=== PATIENT | female | born 1980 | race American Indian/Alaskan Native ===

== ENCOUNTER 2021-04-04 08:46 | Observation (INO) | payer OTHER ==
--- NOTE | 2021-03-31 10:23 | Anesthesia Consultation ---
Anesthesia Consult and Med Hx Date of service: 04/04/21 - Airway Anesthetic Teeth Evaluation: Good, Crowns ROM Head & Neck: Adequate Mental/Hyoid Distance: Adequate Mallampati Class: Class III Intubation Access Assessment: Good - Pre-Operative Health Status ASA Pre-Surgery Classification: ASA1 Proposed Anesthetic Plan: General Nerve Block: TAP - Pulmonary Hx Smoking: No Hx Sleep Apnea: No - Central Nervous System Hx Psychiatric Problems: No - Gastrointestinal Hx Gastroesophageal Reflux Disease: No - Hematic Hx Sickle Cell Disease: No - Other Systems Hx Alcohol Use: Yes (Occas) Hx Cancer: No Hx Obesity: No
[2021-03-31 10:58] LABS: Basophils # (Auto) 0.1 K/mm3 (0.0-0.1); Basophils % (Auto) 1.1 % (0.0-1.8); Eosinophils # (Auto) 0.1 K/mm3 (0.0-0.4); Eosinophils % (Auto) 1.7 % (0.0-4.3); Hematocrit 38.1 % (30.3-42.9); Hemoglobin 12.1 gm/dl (10.1-14.3); Lymphocytes # (Auto) 1.6 K/mm3 (1.2-5.4); Lymphocytes % (Auto) 29.6 % (13.4-35.0); Mean Corpuscular HGB Conc 32 % (30-34); Mean Corpuscular Volume 90 fl (79-97); Monocytes # (Auto) 0.4 K/mm3 (0.0-0.8); Monocytes % (Auto) 8.2 % (0.0-7.3); Platelet Count 296 K/mm3 (140-440); Red Blood Count 4.25 M/mm3 (3.65-5.03); Red Cell Distribution Width 13.7 % (13.2-15.2)
--- NOTE | 2021-04-03 13:38 | History and Physical Report ---
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 of genital herpes: yes Hx of STD: HSV Active Medications: None Current Allergies (reviewed today): No known allergies Past Medical History: Reviewed and updated today: Fibroids Abnormal Pap Smear (2013) Past Surgical History: Reviewed history from 02/06/2021 and no changes required: Tubal Ligation 2008 Essure Endometrial Ablation: (11/21/2010) Thermachoice mole removal LEEP(2013)LUCILA 1 Lipoma removed (R) shoulder 07/2017 Family History Summary: Reviewed history Last on 10/03/2020 and no changes required:04/03/2021 Other Family Member - Has No Family History of Uterine Cancer - Entered On: 12/22/2018 Other Family Member - Has No Family History of Small Bowel Cancer - Entered On: 12/22/2018 Other Family Member - Has No Family History of Stomach Cancer - Entered On: 12/22/2018 Other Family Member - Has No Family History of Pancreatic Cancer - Entered On: 12/22/2018 Other Family Member - Has No Family History of Kidney/Urinary Tract Cancer - Entered On: 12/22/2018 Other Family Member - Has No Family History of Spontaneous DVT-PE - Entered On: 12/22/2018 Other Family Member - Has No Family History of Colon Cancer - Entered On: 12/22/2018 Other Family Member - Has No Family History of Brain Cancer - Entered On: 12/22/2018 Other Family Member - Has No Family History of Breast Cancer - Entered On: 12/22/2018 Other Family Member - Has No Family History of Biliary Tract Cancer - Entered On: 12/22/2018 MGM - Has Family History of Ovarian Cancer - Entered On: 06/27/2015 General Comments - FH: Family History of Colon Cancer maternal great aunt and 2nd cousin No Family History of Breast Cancer No Family History of DVT/PE on OCP Social History: Reviewed history from 06/21/2014 and no changes required: Patient is Smoking History: Patient has never smoked. Risk Factors: Smoked Tobacco Use: Never smoker Smokeless Tobacco Use: Never Passive Smoke Exposure: no HIV High Risk Behavior: no Exercise: yes Times/wk: 3 Type of Exercise: walking Seatbelt Use: 100 % Alcohol Use: yes Type: occ Drinks per day: social Drug Use: no Previous Tobacco Use: Signed On - 02/06/2021 Smoked Tobacco Use: Never smoker Smokeless Tobacco Use: Never Passive Smoke Exposure: no HIV High Risk Behavior: no Exercise: no Seatbelt Use: 100 % Alcohol Use: yes Type: occ Drug Use: no Physical Exam Appearance: well developed, well nourished, no acute distress Other Exams Lungs: no rales, rhonchi, or wheezes Heart: S1, S2, no murmur, rub, or gallop Genitourinary Exam Uterus: deferred for EUA Impression & Recommendations: Problem # 1: Fibroids of uterus; Intramural (ICD-218.1) ([id number]) Diagnosis explained to patient . Discussed with patient various medical, surgical and radiological therapies common for treatment including, but not limited to, myomectomy, hysterectomy and uterine artery embolization. Discussed risks and benefits of laparotomy, laparoscopy, vaginal and robotic assisted approaches for hysterectomies. Patient desires definitive treatment in the form of robot assisted laparoscopic total hysterectomy. The risks and alternatives for this surgery were reviewed with the patient. She was informed of the risks of the surgery including, but not limited to, pain, infection, bleeding possibly heavy enough to require a blood transfusion with associated risks of infections (hepatitis and HIV) and transfusion reactions, possible damage to bowel, bladder or ureter(s) and surrounding organs. She was also informed of slight increased risk for vaginal cuff breakdown with the robotic approach. Patient understands that this surgery will make her sterile. Indications to abort a robotic/laparoscopic procedure and perform an open procedure were explained. Patient understands if her ovaries are removed she will become menopausal. Patient advised the small risks of spreading of malignancy if morcellation is required during the surgery patient understands and approves performing if necessary. Questions answered. Consent reviewed and signed The patient was instructed/informed the following: The normal length of hospital stay for this procedure. Nothing to eat or drink after midnight the evening prior to surgery.. Pre-op instruction sheets given. Wound care instructions given. Problem # 2: Non-cyclic pelvic pain (YYM29-A22.2) It was extensively explained to her that her pain may persist, recur or change in nature due to the difficulty with determining the exact etiology(ies) of chronic pelvic pain or development of adhesions. She declined other treatment options at this time Medications and Allergies Allergies Allergy/AdvReac Type Severity Reaction Status Date / Time No Known Allergies Allergy Unverified 03/28/21 18:48 Home Medications Medication Instructions Recorded Confirmed Last Taken Type No Known Home Medications [No 03/28/21 03/28/21 Unknown History Reported Home Medications] Active Meds: Active Medications Acetaminophen (Acetaminophen 500 Mg Tab) 1,000 mg PO PREOP BELLA Stop: 04/04/21 21:00 Celecoxib (Celecoxib 200 Mg Cap) 400 mg PO PREOP NR Stop: 04/04/21 21:00 Fentanyl (Fentanyl 100 Mcg/2 Ml Inj) 100 mcg IV PREOP BELLA Stop: 04/04/21 21:00 Gabapentin (Gabapentin 300 Mg Cap) 300 mg PO PREOP NR Stop: 04/04/21 21:00 Lactated Ringer's (Lactated Ringers) 1,000 mls @ 125 mls/hr IV DIRECT BELLA Stop: 04/04/21 21:00 Cefazolin Sodium (Ancef/Sterile Water 2 Gm/20 Ml) 2 gm in 20 mls @ 80 mls/hr IV PREOP NR; Protocol Magnesium Oxide (Magnesium Oxide 400 Mg Tab) 400 mg PO PREOP BELLA Stop: 04/04/21 21:00 Methocarbamol (Methocarbamol 750 Mg Tab) 1,500 mg PO PREOP BELLA Stop: 04/04/21 21:00 Midazolam HCl (Midazolam 2 Mg/2 Ml Inj) 2 mg IV PREOP NR Stop: 04/04/21 23:59 Exam Vital Signs Temp Pulse Resp BP Pulse Ox 98.4 F 72 20 121/78 100 03/31/21 09:50 03/31/21 09:50 03/31/21 09:50 03/31/21 09:50 03/31/21 09:50 Results - Labs 03/31/21 06:00 Assessment and Plan - Patient Problems (1) Pelvic pain Status: Chronic (2) Fibroids Status: Chronic
[~2021-04-04 08:46] MED LIST: ACETAMINOPHEN 500 MG TAB PO SCH; CELECOXIB 200 MG CAP PO NR; LACTATED RINGERS 1,000 ML IV SCH; MAGNESIUM OXIDE 400 MG TAB PO SCH; ceFAZolin/Water 2 GM/20 ML 2 GM/20 ML SYRINGE IV NR; fentaNYL 100 MCG/2 ML INJ IV SCH
[2021-04-04] MEDS: GABAPENTIN 300 MG CAP PO NR ×2 (09:40→10:32)
[2021-04-04] MEDS ORDERED: dexAMETHasone 4 MG/ML VIAL ONE (09:41)
[2021-04-04] MEDS ORDERED: BUPIVACAINE/PF (0.25%) 2.5 MG/ML 30 ML VIAL INFILTRATI ONE (09:41)
--- NOTE | 2021-04-04 09:42 | Anesthesia Day of Surgery ---
Anesthesia Day of Surgery - Day of Surgery Patient Examined: Yes Patient H&P Reviewed: Yes Patient is NPO: Yes
[2021-04-04] MEDS: MIDAZOLAM 2 MG/2 ML INJ IV NR ×2 (09:57→10:00)
[2021-04-04] MEDS ORDERED: propofoL 200 MG/20 ML VIAL IV ONE (10:30)
[2021-04-04] MEDS ORDERED: HYDROmorphone 1 MG/1 ML INJ ONE (10:30)
[2021-04-04] MEDS ORDERED: HYDROmorphone 1 MG/1 ML INJ IV PRN ×2 (10:30)
[2021-04-04] MEDS ORDERED: ONDANSETRON 4 MG/2 ML INJ IV PRN ×2 (10:30→18:40)
[2021-04-04] MEDS ORDERED: LIDOCAINE MPF (2%) 20 MG/1 ML VIAL 5 ML ONE (10:33)
[2021-04-04] MEDS ORDERED: ROCURONIUM 50 MG/5 ML INJ IV ONE (10:33)
[2021-04-04] MEDS ORDERED: NEOMY 40 MG/POLYMYXIN B 200,000 UNITS/ML (GU) AMPULE IR ONE ×2 (10:37→12:23)
[2021-04-04] MEDS ORDERED: dexAMETHasone 20 MG/5 ML VIAL ONE (11:35)
[2021-04-04] MEDS ORDERED: GLYCOPYRROLATE 0.4 MG/2 ML INJ ONE ×2 (11:59→13:31)
[2021-04-04] MEDS ORDERED: SODIUM CHLORIDE 0.9% IRRIG SOLN 2000 ML IR ONE (12:23)
[2021-04-04] MEDS ORDERED: NEOSTIGMINE 10MG/10 ML INJ MDV ONE (13:31)
[2021-04-04] MEDS ORDERED: KETOROLAC 30 MG/1 ML INJ ONE (13:31)
[2021-04-04] MEDS ORDERED: ONDANSETRON 4 MG/2 ML INJ ONE (13:31)
[2021-04-04] MEDS ORDERED: LACTATED RINGERS 1,000 ML ONE (13:42)
--- NOTE | 2021-04-04 14:17 | Operative Report ---
Operative Report Operative Report: Date: 04/04/2021 Preoperative diagnosis: 1. Pelvic pain 2. Uterine fibroid 3. Body mass index of 21.6 kg/m Postoperative diagnosis: 1. Pelvic pain 2. Uterine fibroid 3. Body mass index of 21.6 kg/m 4. Bilateral ovarian cyst Procedure: 1. Robotic-assisted laparoscopic total hysterectomy with bilateral salpingectomy 2. Bilateral ovarian cystectomy Surgeon: Carmina Chavez MD Psychiatric Orderly: Meka FERNANDO Anesthesiologist: Dr. Caal Anesthesia: General endotracheal anesthesia EBL: Approximately 100 mL Findings: EUA: Uterus palpated to approximately 15 to 16 weeks weeks. Uterus was sounded to 11 cm. Bilateral ovarian cyst, grossly normal fallopian tubes. Multiple uterine fibroids. Procedure: Patient was taken to the OR and placed in the supine position. General anesthesia was induced and an oral gastric tube was placed. Her neck and head were placed on foam support. Foam eye protection with goggles were secured in place. Then foam face protection was placed and secured. Foam shoulder pads were then positioned on her shoulders for Trendelenburg positioning. She was then placed in dorsolithotomy position. Exam under anesthesia as above. The abdomen and vagina were then prepped and draped in the usual sterile fashion. Timeout was performed. A Sparks catheter was inserted into the bladder with drainage of clear yellow urine. The operative speculum was introduced into the vagina and the anterior lip of the cervix was grasped with single-toothed tenaculum. The uterus was sounded to 11 cm. The cervix was progressively dilated to allow the large V care uterine manipulator. The bulb of the manipulator was inflated and the speculum and tenaculum were removed. The cup of the manipulator was placed around the cervix and the blue occluder of the manipulator was properly positioned in the vagina and secured. A laparotomy sponge that was saturated with a solution of polymyxin and saline was placed in the vagina to ensure pneumoperitoneum. Sterile gloves were placed and attention was turned to the abdomen. A 10 mm midline vertical supraumbilical incision was made approximately 10 cm superior to the elevated fundus of the uterus. A 10-12 mm trocar with the laparoscope and camera attached was introduced through this incision under direct visualization. The abdomen was insufflated. No obvious bowel, bladder, ureteral, or major vascular injury was noted. The patient was then placed in steep Trendelenburg position and the following trochars were placed under direct visualization: 8 mm robotic trochars were placed through incisions made in the bilateral midclavicular lower abdominal region approximately 10 cm lateral to the midline incision, and a 5 mm trocar was placed through an incision made in the right lower lateral pelvis. The 10 mm laparoscope was then replaced by a 5 mm laparoscope that was placed through the 5 millimeter lateral trocar. The 12 mm trocar was then removed and the Jem Briscoe fascial closure device was placed through the incision and a 0 Vicryl was placed through the fascia. Once the suture was secured the 12 mm trocar was reintroduced. Once the trochars were in the appropriate positions, the da Jaswinder robot system was engaged. The EndoShears and bipolar device was placed through the 8 mm trochars and positioned then attention was turned to the console. The uterus was elevated and bilateral salpingectomy was performed. Each tube was removed through the 5 mm trocar and sent to pathology in separate containers. Then the utero-ovarian ligaments were clamped. cauterized and incised bilaterally using 30 W of energy. Then the round ligaments were clamped, cauterized and incised bilaterally. The anterior leaf of the broad ligament was elevated and with careful blunt and sharp dissection the bladder flap was created and dissected away from the lower uterine segment and cervix. The posterior leaf of the broad ligament was dissected away from the uterine vessels. The cup of the uterine manipulator was palpated both anteriorly and posteriorly. The bladder was further dissected away from the lower uterine segment. The uterine vessels were then clamped and cauterized bilaterally. Blanching of the uterus was then noted. Attention was again turned to the anterior lower uterine segment and the bladder was confirmed to be away from the operative field. Then attention was turned again to the posterior where the cup of the manipulator was palpated and a colpotomy was performed down to the cup. The incision was extended in the lateral position to the uterine vessels that were again clamped and cauterized and incised. Con tinuing along the cup of the manipulator in a circumferential manner the colpotomy was completed. The uterus and cervix were then removed through the vaginal incision. The pelvis was irrigated with warm normal saline. A moist laparotomy sponge was placed in the vagina to maintain pneumoperitoneum. The vagina cuff was reapproximated using V LOC 180 suture. Then a J stitch was performed to secure the suture. Again the pelvis was copiously irrigated with polymixin in warm normal saline. The laparotomy sponge was removed from the vagina. No obvious evidence of bowel, bladder, ureteral, or major vascular injury was noted. Attention was turned to the left adnexa where an ovarian cystectomy was performed without any complication. Hemostasis was noted. The same procedure was performed on the right ovary. Hemostasis was noted. The pelvis was again irrigated with warm normal saline hemostasis was noted. Then the instruments were removed, the robot was disengaged. The 12 mm trocar was removed. The suture that was placed in the fascia at the beginning of the procedure inadvertently released when attempting to tie it. Therefore the fascia was ligated with the 0 Vicryl on a UR 6 needle. No bowel or omentum was palpated within this incision when closing it. The patient was taken out of Trendelenburg position, the abdomen was desufflated, the remaining trochars were removed. Incisions were reapproximated using 4-0 Monocryl in a subcuticular manner. Surgiseal was placed over the other incisions. The vagina was then inspected, the cuff was palpated to be intact and no bleeding was noted and clear yellow urine was draining into the Sparks bag from the bladder at the end of the procedure. The Sparks catheter was removed. Counts were correct 3. Patient was taken to recovery room in stable condition.
[2021-04-04] MEDS ORDERED: oxyCODONE /ACETAMINOPHEN 5-325MG TAB PO PRN (16:30)
--- NOTE | 2021-04-04 17:15 | Post Anesthesia Evaluation ---
- Post Anesthesia Evaluation Patient Participated: Yes Airway Patent: Yes Stable Respiratory Function: Yes Nausea/Vomiting: No Temp > 96.8F: Yes Pain Manageable: Yes Adequeate Hydration: Yes Anesthesia Complications: No Block Receding Appropriately: Yes Patient on Ventilator: No
[2021-04-04] MEDS ORDERED: ONDANSETRON 4 MG ODT TAB PO PRN (18:40)
[2021-04-04] MEDS ORDERED: MORPHINE 2 MG/1 ML INJ IV PRN (18:40)
[2021-04-04] MEDS ORDERED: METOCLOPRAMIDE 10 MG/2 ML INJ IV PRN (18:40)
[2021-04-04] MEDS ORDERED: SODIUM CHLORIDE 0.9% 1000 ML 1,000 ML IV SCH (18:40)
[2021-04-04] MEDS ORDERED: METOCLOPRAMIDE 10 MG TAB PO PRN (18:40)
[2021-04-04] MEDS: KETOROLAC 30 MG/1 ML INJ IV SCH (19:42)
[2021-04-04] MEDS: ceFAZolin/NS 1 GM/50 ML 1 GM/50 ML BAG IV SCH (19:44)
[2021-04-04] MEDS ORDERED: ACETAMINOPHEN 325 MG TAB PO PRN (22:30)
[2021-04-05] MEDS: KETOROLAC 30 MG/1 ML INJ IV SCH ×2 (00:52→06:45)
[2021-04-05] MEDS: ceFAZolin/NS 1 GM/50 ML 1 GM/50 ML BAG IV SCH (03:56)
[2021-04-05 06:26] LABS: Hematocrit 34.2 % (30.3-42.9); Hemoglobin 10.9 gm/dl (10.1-14.3)
--- NOTE | 2021-04-05 09:13 | Discharge Summary ---
Providers - Providers Date of Admission: 04/04/21 17:01 Date of discharge: 04/05/21 Attending physician: ARAM SHAY Primary care physician: CINTHYA ECHEVERRIA MD Hospitalization Condition: Good Procedures: Robot assisted laparoscopic total hysterectomy, bilateral salpingectomy, bilateral ovarian cystectomy Hospital course: Unremarkable. Patient underwent the above procedure she was observed in PACU with the intent to allow home however patient received Percocet which made her nauseous and desired observation overnight. Therefore she was admitted and observed, today patient is doing well no complaints desires discharge home. Disposition: HOME / SELF CARE / HOMELESS Final Discharge Diagnosis (Prints w/discharge instructions): Robot-assisted laparoscopic total hysterectomy,bilateral salpingectomy, bilateral ovarian cystectomy - Discharge Diagnoses (1) Pelvic pain Status: Chronic (2) Fibroids Status: Chronic Core Measure Documentation - Palliative Care Palliative Care/ Comfort Measures: Not Applicable - Core Measures Any of the following diagnoses?: none Exam - Physical Exam Narrative exam: Sitting in bed no complaints denies any bleeding or pain. - Constitutional Vitals: Temp Pulse Resp BP Pulse Ox 98.4 F 74 18 117/67 100 04/05/21 07:47 04/05/21 07:47 04/05/21 07:47 04/05/21 07:47 04/05/21 07:47 General appearance: Present: no acute distress - Respiratory Respiratory effort: normal Respiratory: bilateral: CTA - Cardiovascular Rhythm: regular - Extremities Extremities: no ischemia, No edema - Abdominal General gastrointestinal: Present: soft, non-tender, non-distended, normal bowel sounds Female genitourinary: Present: deferred - Integumentary Integumentary: Present: clear, warm, dry (Incisions clean, dry, intact. No signs symptoms of infection or dehiscence.) - Psychiatric Psychiatric: appropriate mood/affect, intact judgment & insight, memory intact, cooperative Plan Activity: other (No sex, no driving. Ambulate on your property approximately 1 mile a day. Void every hour while awake. Use your incentive spirometer every hour while awake.) Weight Bearing Status: Full Weight Bearing Diet: regular (Eat small meals frequently. Drink approximately 60 ounces of water a day. Avoid spicy foods.) Wound: open to air, keep clean and dry Special Instructions: no heavy lifting (Greater than 15 pounds.) Follow up with: CINTHYA ECHEVERRIA MD [Primary Care Provider] - 7 Days ARAM SHAY MD [Staff Physician] - (As scheduled) Forms: Outpatient [facility] Prescriptions: Fluconazole [Diflucan TAB] 200 mg PO QDAY #2 tablet metroNIDAZOLE [Flagyl TAB] 500 mg PO Q12HR #14 tab Ibuprofen [Motrin 800 MG tab] 800 mg PO TID PRN #30 tablet PRN Reason: Pain HYDROcodone/APAP 5-325 [[place] 5-325 mg TAB] 1 - 2 each PO Q6H PRN #10 tablet PRN Reason: Pain
[2021-04-05 11:23] VITALS: BP 128/82
[2021-04-05] MEDS ORDERED: IBUPROFEN 800 MG TAB PO PRN (17:02)
== END 2021-04-05 12:00 | disposition home or self-care (01) ==
LOC: OR 08:46 → OB 17:01
PROVIDERS: ADMIT Obstetrics & Gynecology; ATTEND Obstetrics & Gynecology
DX: D25.1 Intramural leiomyoma of uterus (principal); R10.2 Pelvic and perineal pain; Z98.51 Tubal ligation status; Z90.710 Acquired absence of both cervix and uterus; Z79.899 Other long term (current) drug therapy; Z98.890 Other specified postprocedural states
CPT/HCPCS: 36415; 58554; 64450; 85014; 85018; 85025; 86850; 86900; 86901; 88302; 88305; 88307; 96365; 96366; 96375; 96376; G0378; J0690; J1100; J1170; J1815; J1885; J2250; J2405; J2704; J2710; J3010; J3490; J7120; S2900